=== PATIENT | male | born 1960 | race American Indian/Alaskan Native ===

== ENCOUNTER 2020-01-28 12:33 | Emergency (ER) | payer SELFPAY ==
--- NOTE | 2020-01-28 14:44 | Event Note ---
ED Screening Note Date of service: 01/28/20 Time: 14:41 ED Screening Note: This initial assessment/diagnostic orders/clinical plan/treatment(s) is/are subject to change based on patients health status, clinical progression and re- assessment by fellow clinical providers in the ED. Further treatment and workup at subsequent clinical providers discretion. Patient/guardian urged not to elope from the ED as their condition may be serious if not clinically assessed and managed. Initial orders include: 59yo M states that he has flu-like symptoms, SOB, dry cough and fatigue x 4 days.
--- NOTE | 2020-01-28 15:07 | XRay Report ---
CHEST 2 VIEWS INDICATION: Shortness of breath. COMPARISON: None FINDINGS: Support devices: None. Heart: Within normal limits. Lungs/pleura: No acute air space or interstitial disease. No pneumothorax. Additional findings: None. IMPRESSION: No acute findings. Signer Name: Clovis Singh Jr, MD Signed: 01/28/2020 3:03 PM Workstation Name: [id number]
[2020-01-28 16:27] LABS: Hematocrit 47.6 % (35.5-45.6); Hemoglobin 15.6 gm/dl (11.8-15.2); Mean Corpuscular HGB Conc 33 % (32-34); Mean Corpuscular Volume 84 fl (84-94); Platelet Count 164 K/mm3 (140-440); Red Blood Count 5.64 M/mm3 (3.65-5.03); Red Cell Distribution Width 14.4 % (13.2-15.2)
[2020-01-28 17:04] LABS: Basophils % (Manual) 0 % (0.0-1.8); RBC Morphology Normal; Total Cells Counted 100
--- NOTE | 2020-01-28 19:43 | Emergency Department Report ---
ED General Adult HPI - General Chief complaint: Headache Stated complaint: BODY PAIN/COUGHING/HEADACHE Time Seen by Provider: 01/28/20 14:41 Source: patient Mode of arrival: Ambulatory Limitations: No Limitations - History of Present Illness Initial comments: Patient is a 59-year-old male presents emergency room with complaints of a "crick in his neck" that began this morning. He states that he believes he slept wrong and does not have the correct pillow. He states that it is causing tension causing a headache. He states that he is also had a dry cough and states that he had to catch his breath after frequent coughing. He denies any fever, nausea, vomiting, diarrhea, shortness of breath, vision changes, numbness, weakness. He denies any headache currently. He has a past medical history of diabetes and hypertension. He denies any allergies to medications. - Related Data Previous Rx's Medication Instructions Recorded Last Taken Type Naproxen [EC-Naprosyn] 500 mg PO BID PRN #14 tablet. 01/28/20 Unknown Rx methOCARBAMOL [Robaxin TAB] 500 mg PO QHS PRN #12 tablet 01/28/20 Unknown Rx Allergies Allergy/AdvReac Type Severity Reaction Status Date / Time No Known Allergies Allergy Unverified 01/28/20 13:23 ED Review of Systems ROS: Stated complaint: BODY PAIN/COUGHING/HEADACHE Other details as noted in HPI Comment: All other systems reviewed and negative ED Past Medical Hx - Past Medical History Previous Medical History?: Yes Hx Congestive Heart Failure: Yes Hx Diabetes: Yes - Surgical History Past Surgical History?: No - Medications Home Medications: Home Medications Medication Instructions Recorded Confirmed Last Taken Type Naproxen [EC-Naprosyn] 500 mg PO BID PRN #14 tablet. 01/28/20 Unknown Rx methOCARBAMOL [Robaxin TAB] 500 mg PO QHS PRN #12 tablet 01/28/20 Unknown Rx ED Physical Exam - General Limitations: No Limitations General appearance: alert, in no apparent distress - Head Head exam: Present: atraumatic, normocephalic - Eye Eye exam: Present: normal appearance, PERRL, EOMI Pupils: Present: normal accommodation - ENT ENT exam: Present: mucous membranes moist - Neck Neck exam: Present: normal inspection, tenderness (bilateral C-spine paraspinal muscular TTP, no midline C-spine ttp, no step offs, no deformities). Absent: meningismus, full ROM - Respiratory Respiratory exam: Present: normal lung sounds bilaterally. Absent: respiratory distress, wheezes, rales, rhonchi, stridor, chest wall tenderness, accessory muscle use, decreased breath sounds, prolonged expiratory - Cardiovascular Cardiovascular Exam: Present: regular rate, normal rhythm, normal heart sounds. Absent: systolic murmur, diastolic murmur, rubs, gallop - Neurological Exam Neurological exam: Present: alert, oriented X3, CN II-XII intact, normal gait. Absent: motor sensory deficit - Psychiatric Psychiatric exam: Present: normal affect, normal mood - Skin Skin exam: Present: warm, dry, intact ED Course Vital Signs 01/28/20 01/28/20 13:22 19:51 Temperature 98.6 F 98.6 F Pulse Rate 59 L 62 Respiratory 18 16 Rate Blood Pressure 129/82 Blood Pressure 120/76 [Left] O2 Sat by Pulse 100 100 Oximetry ED Medical Decision Making - Lab Data Result diagrams: 01/28/20 15:57 Lab Results 01/28/20 Range/Units 15:57 WBC 8.3 (4.5-11.0) K/mm3 RBC 5.64 H (3.65-5.03) M/mm3 Hgb 15.6 H (11.8-15.2) gm/dl Hct 47.6 H (35.5-45.6) % MCV 84 (84-94) fl MCH 28 (28-32) pg MCHC 33 (32-34) % RDW 14.4 (13.2-15.2) % Plt Count 164 (140-440) K/mm3 Lymph % (Auto) Negative Retoucher Lymph # Negative Retoucher Add Manual Diff Complete Total Counted 100 Seg Neutrophils % Negative Retoucher Seg Neuts % (Manual) 25.0 L (40.0-70.0) % Band Neutrophils % 0 % Lymphocytes % (Manual) 62.0 H (13.4-35.0) % Reactive Lymphs % (Man) 0 % Monocytes % (Manual) 12.0 H (0.0-7.3) % Eosinophils % (Manual) 1.0 (0.0-4.3) % Basophils % (Manual) 0 (0.0-1.8) % Metamyelocytes % 0 % Myelocytes % 0 % Promyelocytes % 0 % Blast Cells % 0 % Nucleated RBC % Not Reportable Seg Neutrophils # Man 2.1 (1.8-7.7) K/mm3 Band Neutrophils # 0.0 K/mm3 Lymphocytes # (Manual) 5.1 (1.2-5.4) K/mm3 Abs React Lymphs (Man) 0.0 K/mm3 Monocytes # (Manual) 1.0 H (0.0-0.8) K/mm3 Eosinophils # (Manual) 0.1 (0.0-0.4) K/mm3 Basophils # (Manual) 0.0 (0.0-0.1) K/mm3 Metamyelocytes # 0.0 K/mm3 Myelocytes # 0.0 K/mm3 Promyelocytes # 0.0 K/mm3 Blast Cells # 0.0 K/mm3 WBC Morphology Not Reportable Hypersegmented Neuts Not Reportable Hyposegmented Neuts Not Reportable Hypogranular Neuts Not Reportable Smudge Cells Not Reportable Toxic Granulation Not Reportable Toxic Vacuolation Not Reportable Dohle Bodies Not Reportable Pelger-Huet Anomaly Not Reportable Jayson Rods Not Reportable Platelet Estimate Not Reportable Clumped Platelets Not Reportable Plt Clumps, EDTA Not Reportable Large Platelets Not Reportable Giant Platelets Not Reportable Platelet Satelliting Not Reportable Plt Morphology Comment Not Reportable RBC Morphology Normal Dimorphic RBCs Not Reportable Polychromasia Not Reportable Hypochromasia Not Reportable Poikilocytosis Not Reportable Anisocytosis Not Reportable Microcytosis Not Reportable Macrocytosis Not Reportable Spherocytes Not Reportable Pappenheimer Bodies Not Reportable Sickle Cells Not Reportable Target Cells Not Reportable Tear Drop Cells Not Reportable Ovalocytes Not Reportable Helmet Cells Not Reportable Membreno-Cardwell Bodies Not Reportable Kenvir Rings Not Reportable Den Cells Not Reportable Bite Cells Not Reportable Crenated Cell Not Reportable Elliptocytes Not Reportable Acanthocytes (Spur) Not Reportable Rouleaux Not Reportable Hemoglobin C Crystals Not Reportable Schistocytes Not Reportable Malaria parasites Not Reportable Ozzie Bodies Not Reportable Hem Pathologist Commnt No - Radiology Data Radiology results: report reviewed CHEST 2 VIEWS INDICATION: Shortness of breath. COMPARISON: None FINDINGS: Support devices: None. Heart: Within normal limits. Lungs/pleura: No acute air space or interstitial disease. No pneumothorax. Additional findings: None. IMPRESSION: No acute findings. Signer Name: Clovis Singh Jr, MD Signed: 01/28/2020 3:03 PM Workstation Name: [id number] Transcribed By: MCKENNA Dictated By: CLOVIS SINGH JR, MD Electronically Authenticated By: CLOVIS SINGH JR, MD Signed Date/Time: 01/28/20 150 DD/ 1502 TD/TT: - Medical Decision Making Patient is a 59-year-old male presents emergency room with complaints of a "crick in his neck" that began this morning. He states that he believes he slept wrong and does not have the correct pillow. He states that it is causing tension causing a headache. He states that he is also had a dry cough and states that he had to catch his breath after frequent coughing. He denies any fever, nausea, vomiting, diarrhea, shortness of breath, vision changes, numbness, weakness. He denies any headache currently. He has a past medical history of diabetes and hypertension. He denies any allergies to medications. Vitals are normal. On exam: bilateral C-spine paraspinal muscular TTP, no m idline C-spine ttp, no step offs, no deformities, no meningeal signs, no focal neuro deficits, breath sounds are clear bilaterally, no wheezing, no rales, no rhonchi. Labs are stable. No leukocytosis, no lymphocytopenia. CXR: No acute findings. Examination consistent with muscle strain which could lead to a tension headache. Patient given prescription for Robaxin and naproxen. advised pt Please take medication as prescribed as needed. Do not drive or operate heavy machinery while taking muscle relaxer due to potential for drowsiness. May use ice pack, heating pad, rest, Epson salt bath. May take Zyrtec [id number] to help relieve dry cough. Follow-up with a primary care doctor in the next 2 to 3 days for reexamination. Return to the emergency room immediately for any new or worsening symptoms including but not limited to high fevers, difficulty breathing, shortness of breath, dizziness, numbness, unilateral weakness, vision changes, etc. - Differential Diagnosis Muscle strain, spasm, DDD, bulging disc, URI, seasonal allergies, PNA Critical care attestation.: If time is entered above; I have spent that time in minutes in the direct care of this critically ill patient, excluding procedure time. ED Disposition Clinical Impression: Tension headache, Dry cough Cervical muscle strain Qualifiers: Encounter type: initial encounter Qualified Code(s): S16.1XXA - Strain of muscle, fascia and tendon at neck level, initial encounter Disposition: TO HOME OR SELFCARE Is pt being admited?: No Does the pt Need Aspirin: No Condition: Stable Instructions: Muscle Strain (ED) Additional Instructions: Please take medication as prescribed as needed. Do not drive or operate heavy machinery while taking muscle relaxer due to potential for drowsiness. May use ice pack, heating pad, rest, Epson salt bath. May take Zyrtec [id number] to help relieve dry cough. Follow-up with a primary care doctor in the next 2 to 3 days for reexamination. Return to the emergency room immediately for any new or worsening symptoms including but not limited to high fevers, difficulty breathing, shortness of breath, dizziness, numbness, unilateral weakness, vision changes, etc. Prescriptions: methOCARBAMOL [Robaxin TAB] 500 mg PO QHS PRN #12 tablet PRN Reason: Muscle Spasm Naproxen [EC-Naprosyn] 500 mg PO BID PRN #14 tablet.dr BENITEZ Reason: pain Referrals: ARNOLDO ALVAREZ MD [Staff Physician] - 2-3 Days [facility] [Provider Group] - 2-3 Days [facility] [Outside] - 2-3 Days [facility] [Outside] - 2-3 Days Time of Disposition: 19:41 Print Language: PORTUGUESE
[2020-01-28 19:54] VITALS: BP 120/76
== END 2020-01-28 19:55 | disposition home or self-care (01) ==
LOC: ED 12:33
DX: S16.1XXA Strain of muscle, fascia and tendon at neck level, initial encounter (principal); R51 Headache; R05 Cough; I50.9 Heart failure, unspecified; E11.9 Type 2 diabetes mellitus without complications; Z79.899 Other long term (current) drug therapy; X58.XXXA Exposure to other specified factors, initial encounter; Y93.89 Activity, other specified; Y92.89 Other specified places as the place of occurrence of the external cause; Y99.8 Other external cause status
CPT/HCPCS: 36415; 71046; 85007; 85025

== ENCOUNTER 2021-03-10 05:18 | Emergency (ER) | payer SELFPAY ==
[2021-03-10 06:16] LABS: Basophils % (Auto) 0.3 % (0.0-1.8); Eosinophils # (Auto) 0.1 K/mm3 (0.0-0.4); Eosinophils % (Auto) 1.6 % (0.0-4.3); Hematocrit 45.9 % (35.5-45.6); Lymphocytes # (Auto) 2.9 K/mm3 (1.2-5.4); Mean Corpuscular HGB Conc 35 % (32-34); Mean Corpuscular Volume 82 fl (84-94); Monocytes # (Auto) 0.7 K/mm3 (0.0-0.8); Monocytes % (Auto) 10.2 % (0.0-7.3); Platelet Count 142 K/mm3 (140-440); Red Cell Distribution Width 13.5 % (13.2-15.2)
--- NOTE | 2021-03-10 06:21 | XRay Report ---
CHEST 1 VIEW 03/10/2021 5:44 AM INDICATION / CLINICAL INFORMATION: Chest Pain. COMPARISON: 01/28/2020 FINDINGS: SUPPORT DEVICES: None. HEART / MEDIASTINUM: No significant abnormality. LUNGS / PLEURA: No significant pulmonary or pleural abnormality. No pneumothorax. ADDITIONAL FINDINGS: No significant additional findings. IMPRESSION: No acute abnormality. Signer Name: Americo Johnson MD Signed: 03/10/2021 6:16 AM Workstation Name: [id number]
--- NOTE | 2021-03-10 06:25 | Emergency Department Report ---
ED Chest Pain HPI - General Chief Complaint: Chest Pain Stated Complaint: CHEST PAIN Time Seen by Provider: 03/10/21 06:14 Source: patient, EMS Mode of arrival: Ambulatory Limitations: No Limitations - History of Present Illness Initial Comments: 59-year-old male, history of hypertension, diabetes, glaucoma, presents to ED with body cramping. Patient states he was awakened from sleep with cramping in his legs which then moved to cramping in his abdomen which then moved to cramping in his chest. Patient states the cramping feels "like when you are dehydrated." Patient reports some diaphoresis. He denies any shortness of breath, nausea, vomiting, leg swelling. Patient reports onset of the cramping approximately 1 hour ago. He states he is still having cramping in his legs, abdomen, and chest, but now it is "mild." Complaint: chest pain -: hour(s) (1) Onset: awoke with symptoms Pain Location: other (Anterior chest) Pain Radiation: none Severity: moderate Quality: other (Crampy) Consistency: other (Now improved) Improves With: nothing Worsens With: nothing re: denies: nausea, vomting Other Symptoms: denies: cough, fever, syncope, leg swelling - Related Data Previous Rx's Medication Instructions Recorded Last Taken Type Naproxen [EC-Naprosyn] 500 mg PO BID PRN #14 tablet. 01/28/20 Unknown Rx methOCARBAMOL [Robaxin TAB] 500 mg PO QHS PRN #12 tablet 01/28/20 Unknown Rx Naproxen [Naprosyn] 500 mg PO BID #20 tablet 03/10/21 Unknown Rx Allergies Allergy/AdvReac Type Severity Reaction Status Date / Time No Known Allergies Allergy Unverified 01/28/20 13:23 Heart Score - HEART Score History: Slightly suspicious EKG: Non-specific Age: 45-65 Risk factors: 1-2 risk factors Troponin: < normal limit HEART Score: 3 - EKG Read Time Time EKG Completed: 05:58 EKG Read Time: 06:06 ED Review of Systems ROS: Stated complaint: CHEST PAIN Other details as noted in HPI Comment: All other systems reviewed and negative Constitutional: denies: chills, fever Respiratory: denies: shortness of breath Cardiovascular: chest pain Gastrointestinal: abdominal pain. denies: nausea, vomiting, diarrhea Musculoskeletal: myalgia ED Past Medical Hx - Past Medical History Hx Congestive Heart Failure: Yes Hx Diabetes: Yes - Social History Smoking Status: Current Every Day Smoker - Medications Home Medications: Home Medications Medication Instructions Recorded Confirmed Last Taken Type Naproxen [EC-Naprosyn] 500 mg PO BID PRN #14 tablet. 01/28/20 Unknown Rx methOCARBAMOL [Robaxin TAB] 500 mg PO QHS PRN #12 tablet 01/28/20 Unknown Rx Naproxen [Naprosyn] 500 mg PO BID #20 tablet 03/10/21 Unknown Rx ED Physical Exam - General Limitations: No Limitations General appearance: alert, in no apparent distress - Head Head exam: Present: atraumatic, normocephalic - Eye Eye exam: Present: normal appearance, EOMI - ENT ENT exam: Present: mucous membranes moist - Neck Neck exam: Present: normal inspection - Respiratory Respiratory exam: Present: normal lung sounds bilaterally. Absent: respiratory distress - Cardiovascular Cardiovascular Exam: Present: regular rate, normal rhythm - GI/Abdominal GI/Abdominal exam: Present: soft. Absent: distended, tenderness - Extremities Exam Extremities exam: Present: normal inspection. Absent: pedal edema, calf tenderness - Neurological Exam Neurological exam: Present: alert, oriented X3 - Psychiatric Psychiatric exam: Present: normal affect, normal mood - Skin Skin exam: Present: warm, dry, intact, normal color ED Course Vital Signs 03/10/21 03/10/21 03/10/21 05:32 06:31 07:01 Temperature 98.4 F Pulse Rate 62 63 Respiratory 17 17 Rate Blood Pressure 116/79 129/79 O2 Sat by Pulse 96 98 Oximetry 03/10/21 03/10/21 03/10/21 07:04 07:15 08:01 Temperature Pulse Rate 61 62 Respiratory 18 17 19 Rate Blood Pressure 116/79 133/79 O2 Sat by Pulse 99 100 Oximetry 03/10/21 03/10/21 03/10/21 08:15 08:45 09:01 Temperature Pulse Rate 57 L 64 66 Respiratory 19 17 18 Rate Blood Pressure 136/89 135/73 132/82 O2 Sat by Pulse 95 99 98 Oximetry ED Medical Decision Making - Lab Data Result diagrams: 03/10/21 05:47 03/10/21 05:47 - EKG Data -: EKG Interpreted by [place] EKG shows normal: sinus rhythm, axis, intervals, QRS complexes - EKG Data Interpretation: LVH, other (Inferior T wave inversions) - Radiology Data Radiology results: report reviewed, image reviewed - Medical Decision Making 59-year-old male presents to ED with diffuse body cramping, including legs, abdomen, chest. EKG shows no ST elevation. Troponin negative x2. CK is normal. Chest x-ray is unremarkable. Blood glucose slightly elevated in the 330s, however patient does not appear to be in DKA. 1 L bolus of IV fluids and Toradol was given. Patient feeling much better following medication administration. He will be discharged at this time. Outpatient follow-up advised, return precautions given. - Differential Diagnosis ACS, rhabdomyolysis, dehydration Critical care attestation.: If time is entered above; I have spent that time in minutes in the direct care of this critically ill patient, excluding procedure time. ED Disposition Clinical Impression: Chest pain, Myalgia Disposition: DC- TO HOME OR SELFCARE Is pt being admited?: No Condition: Stable Instructions: Nonspecific Chest Pain, Adult, Musculoskeletal Pain Prescriptions: Naproxen [Naprosyn] 500 mg PO BID #20 tablet Referrals: PRIMARY CARE [Primary Care Provider] - 3-5 Days [facility] [Provider Group] - 3-5 Days Time of Disposition: 09:24
[2021-03-10 06:36] LABS: Alanine Aminotransferase 21 units/L (7-56); Albumin 4.1 g/dL (3.9-5); BUN/Creatinine Ratio 18; Blood Urea Nitrogen 20 mg/dL (9-20); Hemolysis Index 6
[2021-03-10] MEDS ORDERED: SODIUM CHLORIDE 0.9% 1000 ML 1,000 ML IV ONE (06:49)
[2021-03-10] MEDS ORDERED: KETOROLAC 30 MG/1 ML INJ IV ONE (06:51)
[2021-03-10 10:07] VITALS: BP 132/82
--- NOTE | 2021-03-12 11:45 | Electrocardiograph Report ---
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
== END 2021-03-10 10:35 | disposition home or self-care (01) ==
LOC: EDBD → ED 05:18
DX: R07.89 Other chest pain (principal); M79.10 Myalgia, unspecified site; I10 Essential (primary) hypertension; F17.200 Nicotine dependence, unspecified, uncomplicated; Z79.899 Other long term (current) drug therapy
CPT/HCPCS: 36415; 71045; 80053; 82550; 82962; 84484; 85025; 93005; 96361; 96374; 99284; J1885; J7030

== ENCOUNTER 2021-04-04 11:18 | Emergency (ER) | payer SELFPAY ==
--- NOTE | 2021-04-04 12:56 | Event Note ---
ED Screening Note Date of service: 04/04/21 Time: 12:52 ED Screening Note: 59-year-old male patient with history of diabetes and hypertension presents to the emergency department with complaints of subjective fever, chills, epigastric abdominal pain, nausea, and diarrhea starting this morning. Patient reports 3 episodes of diarrhea, no black or bloody stools. No known sick contacts. No [id number] medications prior to arrival. No current steroid or antibiotic use. No recent travel. General: Awake, appropriately interactive, no acute distress. Neck: Supple. Full range of motion intact. Cardiovascular: Normal peripheral perfusion. Pulmonary: No respiratory distress. Patient is speaking normally without use of accessory muscles. Skin: No apparent rashes or lesions. Neurological: No facial asymmetry. Speech is clear. Follows commands. Patient is alert and oriented. Musculoskeletal: Moves all four extremities spontaneously with normal range of motion. Psych: Cooperative. Appropriate mood and affect. I have greeted and performed a focused rapid initial assessment of this patient. A comprehensive ED assessment and evaluation of the patient, analysis of all test results, and completion of the medical decision-making process will be conducted by additional ED providers. This initial assessment/diagnostic orders/clinical plan/treatment(s) is/are subject to change based on patients health status, clinical progression and re-assessment. Further treatment and workup at subsequent clinical provider's discretion. Patient/guardian urged not to elope from the ED as their condition may be serious if not clinically assessed and managed.
--- NOTE | 2021-04-04 13:27 | XRay Report ---
CHEST 2 VIEWS INDICATION / CLINICAL INFORMATION: epigastric pain. COMPARISON: 03/10/2021 FINDINGS: SUPPORT DEVICES: None. HEART / MEDIASTINUM: Stable. LUNGS / PLEURA: No significant pulmonary or pleural abnormality. No pneumothorax. ADDITIONAL FINDINGS: No significant additional findings. IMPRESSION: 1. No acute findings. No significant interval change. Signer Name: Cali Cade MD Signed: 04/04/2021 1:22 PM Workstation Name: [id number]
[2021-04-04 13:45] LABS: Basophils % (Auto) 0.4 % (0.0-1.8); Eosinophils % (Auto) 0.2 % (0.0-4.3); Hematocrit 50.1 % (35.5-45.6); Hemoglobin 16.8 gm/dl (11.8-15.2); Lymphocytes # (Auto) 3.9 K/mm3 (1.2-5.4); Lymphocytes % (Auto) 49.2 % (13.4-35.0); Mean Corpuscular HGB Conc 34 % (32-34); Mean Corpuscular Volume 84 fl (84-94); Monocytes # (Auto) 0.7 K/mm3 (0.0-0.8); Monocytes % (Auto) 9.2 % (0.0-7.3); Platelet Count 163 K/mm3 (140-440); Red Blood Count 5.98 M/mm3 (3.65-5.03); Red Cell Distribution Width 14.4 % (13.2-15.2)
[2021-04-04 14:05] LABS: Alanine Aminotransferase 15 units/L (7-56); Albumin 4.8 g/dL (3.9-5); BUN/Creatinine Ratio 11; Blood Urea Nitrogen 11 mg/dL (9-20); Calcium 9.7 mg/dL (8.4-10.2); Hemolysis Index 14
--- NOTE | 2021-04-04 16:38 | Emergency Department Report ---
ED N/V/D HPI - General Chief complaint: Weakness Stated complaint: FEVER, CHILLS, SWEAT, CANNOT EAT ANYTHING Source: patient Mode of arrival: Ambulatory Limitations: No Limitations - History of Present Illness Initial comments: 59-year-old -Tog[place] male diabetic presents emerged department complaining of a 1 day history of nausea vomiting and diarrhea with fatigue since the onset which was spontaneous. Reports no known sick contacts reports no hemoptysis no hematemesis hematochezia no chest pain palpitations. No headaches. MD complaint: nausea, vomiting, diarrhea -: Gradual Location: diffuse Radiation: none Quality: aching Consistency: constant Improves with: none Worsens with: eating Associated Symptoms: myalgias, fever/chills, loss of appetite, malaise, nausea/vomiting, weakness. denies: cough, rash, dysuria, syncope - Related Data Previous Rx's Medication Instructions Recorded Last Taken Type Naproxen [EC-Naprosyn] 500 mg PO BID PRN #14 tablet. 01/28/20 Unknown Rx methOCARBAMOL [Robaxin TAB] 500 mg PO QHS PRN #12 tablet 01/28/20 Unknown Rx Naproxen [Naprosyn] 500 mg PO BID #20 tablet 03/10/21 Unknown Rx Hyoscyamine Subl [Levsin Sl 0.125 0.125 mg SL Q6HR PRN #20 tab 04/04/21 Unknown Rx TAB] Ondansetron [Zofran ODT TAB] 8 mg PO Q12HR #14 tab.rapdis 04/04/21 Unknown Rx Allergies Allergy/AdvReac Type Severity Reaction Status Date / Time No Known Allergies Allergy Unverified 01/28/20 13:23 ED Review of Systems ROS: Stated complaint: FEVER, CHILLS, SWEAT, CANNOT EAT ANYTHING Other details as noted in HPI Comment: All other systems reviewed and negative ED Past Medical Hx - Past Medical History Previous Medical History?: Yes Hx Congestive Heart Failure: Yes Hx Diabetes: Yes - Surgical History Past Surgical History?: No - Social History Smoking Status: Current Every Day Smoker Substance Use Type: Marijuana - Medications Home Medications: Home Medications Medication Instructions Recorded Confirmed Last Taken Type Naproxen [EC-Naprosyn] 500 mg PO BID PRN #14 tablet. 01/28/20 Unknown Rx methOCARBAMOL [Robaxin TAB] 500 mg PO QHS PRN #12 tablet 01/28/20 Unknown Rx Naproxen [Naprosyn] 500 mg PO BID #20 tablet 03/10/21 Unknown Rx Hyoscyamine Subl [Levsin Sl 0.125 0.125 mg SL Q6HR PRN #20 tab 04/04/21 Unknown Rx TAB] Ondansetron [Zofran ODT TAB] 8 mg PO Q12HR #14 tab.rapdis 04/04/21 Unknown Rx ED Physical Exam - General Limitations: No Limitations General appearance: alert, in no apparent distress - Head Head exam: Present: atraumatic, normocephalic - Eye Eye exam: Present: normal appearance, PERRL - ENT ENT exam: Present: mucous membranes moist - Neck Neck exam: Present: normal inspection - Respiratory Respiratory exam: Present: normal lung sounds bilaterally. Absent: respiratory distress - Cardiovascular Cardiovascular Exam: Present: regular rate, normal rhythm. Absent: systolic murmur, diastolic murmur, rubs, gallop - GI/Abdominal GI/Abdominal exam: Present: soft, normal bowel sounds. Absent: distended, tenderness, guarding - Rectal Rectal exam: Present: deferred - Extremities Exam Extremities exam: Present: normal inspection, normal capillary refill - Back Exam Back exam: Present: normal inspection - Neurological Exam Neurological exam: Present: alert, oriented X3 - Psychiatric Psychiatric exam: Present: normal affect, normal mood - Skin Skin exam: Present: warm, dry, intact, normal color. Absent: rash ED Course Vital Signs 04/04/21 12:10 Temperature 98.4 F Pulse Rate 79 Respiratory 20 Rate Blood Pressure 120/90 O2 Sat by Pulse 97 Oximetry ED Medical Decision Making - Lab Data Result diagrams: 04/04/21 13:28 04/04/21 13:28 Lab Results 04/04/21 04/04/21 Range/Units 13:28 13:28 WBC 8.0 (4.5-11.0) K/mm3 RBC 5.98 H (3.65-5.03) M/mm3 Hgb 16.8 H (11.8-15.2) gm/dl Hct 50.1 H (35.5-45.6) % MCV 84 (84-94) fl MCH 28 (28-32) pg MCHC 34 (32-34) % RDW 14.4 (13.2-15.2) % Plt Count 163 (140-440) K/mm3 Lymph % (Auto) 49.2 H (13.4-35.0) % Cloud % (Auto) 9.2 H (0.0-7.3) % Eos % (Auto) 0.2 (0.0-4.3) % Baso % (Auto) 0.4 (0.0-1.8) % Lymph # (Auto) 3.9 (1.2-5.4) K/mm3 Cloud # (Auto) 0.7 (0.0-0.8) K/mm3 Eos # (Auto) 0.0 (0.0-0.4) K/mm3 Baso # (Auto) 0.0 (0.0-0.1) K/mm3 Seg Neutrophils % 41.0 (40.0-70.0) % Seg Neutrophils # 3.3 (1.8-7.7) K/mm3 Sodium 130 L (137-145) mmol/L Potassium 3.7 (3.6-5.0) mmol/L Chloride 90.0 L (98-107) mmol/L Carbon Dioxide 28 (22-30) mmol/L Anion Gap 16 mmol/L BUN 11 (9-20) mg/dL Creatinine 1.0 (0.8-1.3) mg/dL Estimated GFR > 60 ml/min BUN/Creatinine Ratio 11 % Glucose 369 H (75-100) mg/dL Calcium 9.7 (8.4-10.2) mg/dL Magnesium 2.00 (1.7-2.3) mg/dL Total Bilirubin 1.20 (0.1-1.2) mg/dL AST 20 (5-40) units/L ALT 15 (7-56) units/L Alkaline Phosphatase 111 (35-129) units/L Troponin T < 0.010 (0.00-0.029) ng/mL Total Protein 7.9 (6.3-8.2) g/dL Albumin 4.8 (3.9-5) g/dL Albumin/Globulin Ratio 1.5 % Lipase 9 L (13-60) units/L - Radiology Data Radiology results: report reviewed [address] [place] [address] XRay Report Signed Patient: EMETERIO LUTZ MR#: [id number] 6 : 06/05/1961 Acct:[id number] Age/Sex: 59 / M ADM Date: 04/04/21 Loc: ED Attending Dr: Ordering Physician: DENY FLYNN Date of Service: 04/04/21 Procedure(s): XR chest routine 2V Accession Number(s): [id number] cc: DENY FLYNN Fluoro Time In Minutes: CHEST 2 VIEWS INDICATION / CLINICAL INFORMATION: epigastric pain. COMPARISON: 03/10/2021 FINDINGS: SUPPORT DEVICES: None. HEART / MEDIASTINUM: Stable. LUNGS / PLEURA: No significant pulmonary or pleural abnormality. No pneumothorax. ADDITIONAL FINDINGS: No significant additional findings. IMPRESSION: 1. No acute findings. No significant interval change. Signer Name: Cali Newman MD Signed: 04/04/2021 1:22 PM Workstation Name: [id number] Transcribed By: Dictated By: CALI NEWMAN Electronically Authenticated By: CALI NEWMAN Signed Date/Time: 04/04/21 132 DD/ 21 TD/TT: Print Cancel - Medical Decision Making Patient presents to the emergency department with nausea, vomiting, diarrhea, differential diagnosis includes possible acute gastroenteritis. Abdominal examination without peritoneal signs. Currently patient is euvolemic without ev idence of dehydration. No evidence of surgical abdomen or other acute medical emergency including bowel obstruction, viscus perforation, vascular catastrophe, appendicitis, cholecystitis at this time. Presentation not consistent with other acute emergent causes of vomiting and diarrhea at this time. No indication for abdominal imaging. Found to have some hypoglycemia with blood sugar being 36 9. After evaluation blood sugar did spontaneously resolve to the 250 range . Advised Mr. Lutz the importance of good glucose control. Advised on proper hydration and multivitamin utilization. Does report the importance of following with primary care provider reevaluation of the diabetic medications Plan supportive care, oral/IV rehydration, antiemetics and reassess Critical care attestation.: If time is entered above; I have spent that time in minutes in the direct care of this critically ill patient, excluding procedure time. ED Disposition Clinical Impression: Nausea vomiting and diarrhea Disposition: DC-01 TO HOME OR SELFCARE Is pt being admited?: No Does the pt Need Aspirin: No Condition: Stable Instructions: Diarrhea, Adult, [id number], Nausea and Vomiting, Adult, Food Choices to Help Relieve Diarrhea, Adult Prescriptions: Hyoscyamine Subl [Levsin Sl 0.125 TAB] 0.125 mg SL Q6HR PRN #20 tab PRN Reason: abdominal pian Ondansetron [Zofran ODT TAB] 8 mg PO Q12HR #14 tab.ochoa Referrals: PRIMARY CARE, [Primary Care Provider] - 3-5 Days [facility] [Provider Group] - 3-5 Days
[2021-04-04 17:35] VITALS: BP 136/97
== END 2021-04-04 17:38 | disposition home or self-care (01) ==
LOC: ED 11:18
DX: R11.2 Nausea with vomiting, unspecified (principal); R19.7 Diarrhea, unspecified; R53.83 Other fatigue; F17.200 Nicotine dependence, unspecified, uncomplicated; F12.90 Cannabis use, unspecified, uncomplicated; E11.9 Type 2 diabetes mellitus without complications; I50.9 Heart failure, unspecified; Z72.89 Other problems related to lifestyle; Z79.899 Other long term (current) drug therapy
CPT/HCPCS: 36415; 71046; 80053; 82962; 83690; 83735; 84484; 85025; 99283

== ENCOUNTER 2021-10-23 09:57 | Emergency (ER) | payer SELFPAY ==
[2021-10-23] MEDS ORDERED: ACETAMINOPHEN 325 MG TAB PO ONE (12:40)
[2021-10-23] MEDS ORDERED: IBUPROFEN 400 MG TAB PO ONE (12:40)
--- NOTE | 2021-10-23 12:41 | Emergency Department Report ---
Upper Extremity - HPI Chief Complaint: Extremity Injury, Upper Stated Complaint: SHOULDER PAIN Time Seen by Provider: 10/23/21 12:28 Upper Extremity: Left Shoulder Occurred When: 1 Day Mechanism: Other Severity: moderate Symptoms: Yes Pain with Movement, No Deformity, No Limited Range of Movement, No Numbness, No Weakness, No Swelling, No Bruising/Ecchymosis, No Laceration or Abrasion Other History: The patient was evaluated in the emergency department for symptoms described in the history of present illness. He/she was evaluated in the context of the global COVID-19 pandemic, which necessitated consideration that the patient might be at risk for infection with the virus that causes COVID-19. Institutional protocols and algorithms that pertain to the evaluation of patients at risk for COVID-19 are in a state of rapid change based on information released by regulatory bodies including the CDC and federal and state organizations. These policies and algorithms were followed during the patient's care in the emergency department. Please note that these policies, procedures and recommendations changed on a rapid basis. The patient is a 60-year-old gentleman, who presents to the ER today with a complaint of nontraumatic left-sided shoulder pain, which happened at work yesterday, after lifting a heavy object. Prior to this event, the patient reports that he is in his usual state of health. Patient indicates the pain is throbbing and aching, increases with palpation and range of motion, and it decreases with rest. 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 He was referred to the emergency room for medical clearance. He denies additional injuries and complaints ED Review of Systems ROS: Stated complaint: SHOULDER PAIN Other details as noted in HPI Constitutional: denies: fever Respiratory: denies: cough Cardiovascular: denies: chest pain Gastrointestinal: denies: abdominal pain Musculoskeletal: arthralgia, myalgia ED Past Medical Hx - Past Medical History Hx Congestive Heart Failure: Yes Hx Diabetes: Yes - Social History Smoking Status: Current Every Day Smoker Substance Use Type: Marijuana - Medications Home Medications: Home Medications Medication Instructions Recorded Confirmed Last Taken Type Acetaminophen [Non-Aspirin Extra 650 mg PO Q6HR PRN #30 tablet 10/23/21 Unknown Rx Strength] Ibuprofen [Motrin] 600 mg PO Q8H PRN #30 tablet 10/23/21 Unknown Rx Upper Extremity Exam - Exam General: Vital signs noted. No distress. Alert and acting appropriately. Sensation is intact to light touch in the bilateral deltoid, median, radial, and ulnar distribution. 2+ pulses noted in the bilateral upper extremities. There is no long bony tenderness. Left shoulder has intact range of motion, but is painful to active and painfully range. There is no redness, warmth, pus or streaking over the left shoulder. No facial droop. Tongue midline. Extraocular movements intact bilaterally. Facial sensation intact to light touch in V1, V2, V3 distribution bilaterally. 5 and a 5 strength in 4 extremities. Sensation intact to light touch in 4 extremities. Head and Torso: No HEENT Abnormality, No Neck Tenderness, No Chest/Lungs Abnormality, No Abdominal Tenderness, No Back Tenderness Shoulder Exam: Yes Shoulder Tenderness (Left shoulder pain), Yes Normal Range of Motion in Shoulder, Yes AC Joint Tenderness (left), No Clavicle Tenderness, No Shoulder Deformity Arm Exam: No Arm/Humerus Tenderness, No Arm Deformity Elbow: Yes Normal Range of Motion in Elbow, No Elbow Tenderness, No Elbow Deformity Forearm: No Forearm Tenderness, No Forearm Deformity, No Pain with Pronation, No Pain with Supination Wrist: Yes Normal ROM in Wrist, No Wrist Tenderness, No Wrist Deformity, No Snuffbox Tenderness, No Pain with Axial Thumb Compression Hand: Yes Normal ROM in Digit(s), No Hand Tenderness, No Hand Deformity, No Digit Tenderness, No Digit(s) Deformity, No Tendon Dysfunction CMS Exam: Yes Normal Distal Pulses, Yes Normal Capillary Refill, Yes Normal Distal Sensation, No Broken Skin ED Course Vital Signs 10/23/21 10/23/21 10/23/21 10:27 10:32 12:27 Temperature 98.1 F Pulse Rate 88 Respiratory 20 Rate Blood Pressure 140/91 O2 Sat by Pulse 100 99 Oximetry ED Medical Decision Making - Lab Data Vital Signs 10/23/21 10/23/21 10/23/21 10:27 10:32 12:27 Temperature 98.1 F Pulse Rate 88 Respiratory 20 Rate Blood Pressure 140/91 O2 Sat by Pulse 100 99 Oximetry - Radiology Data Radiology results: pending, report reviewed, image reviewed Bilateral shoulder radiographs, 3 views of each shoulder provided. HISTORY: Shoulder pain COMPARISON: FINDINGS: Right shoulder: No acute fracture or malalignment. There is mild osteoarthritis of the right acromioclavicular joint. Subacromial space is preserved. Soft tissues are unremarkable. Left shoulder: No acute fracture or malalignment. Mild/moderate left acromioclavicular osteoarthritis. Subacromial space is preserved. Soft tissues are unremarkable. IMPRESSION: No acute abnormality of the shoulders. Signer Name: Robbi Meyer MD Signed: 10/23/2021 12:18 PM Workstation Name: [id number] - Medical Decision Making Differential diagnosis, including but not limited to: Sprain, strain, fracture, dislocation, arthritis Assessment and plan: 60-year-old gentleman, who is right-hand dominant, presenting to the ER today with complaints of left shoulder pain after heavy lifting, which is a work-related injury. 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 He has a normal neurovascular examination, intact range of motion of the shoulder, no additional injuries, and his exam and physical are not suggestive of infected/inflamed/septic joint. Tylenol, Motrin, rest, ice, compression, elevation, light duty, no heavy lifting, counseled to follow-up with outpatient primary care, and his employer, to follow-up with the Worker's Compensation provider for clearance to return to heavy lifting. Return precautions are reviewed. Critical care attestation.: If time is entered above; I have spent that time in minutes in the direct care of this critically ill patient, excluding procedure time. ED Disposition Clinical Impression: Osteoarthritis of AC (acromioclavicular) joint Left shoulder pain Qualifiers: Chronicity: acute Qualified Code(s): M25.512 - Pain in left shoulder Disposition: 01 HOME / SELF CARE / HOMELESS Is pt being admited?: No Does the pt Need Aspirin: No Condition: Good Instructions: Shoulder Pain Additional Instructions: Please take the pain medication as needed and directed. Alternate ice packs and heat packs as needed for physical pain. The patient may return to work, but he is not cleared to return to full duty, heavy lifting. Patient may participate in light lifting and light activities, as he is physically able to do. We recommend that the patient follow-up with his finishing room supervisor or employer, to clarify his employers work-related injury, and Worker's Compensation policy. Alternatively, the patient may follow-up with an outpatient primary care doctor or orthopedic physician, such as those at [facility] orthopedic. Please take the pain medications as needed and directed. Please return to the emergency room right away with new pain, worsened pain, migration of pain, projectile vomiting, change in mental status, confusion, inability tolerate liquid feeds, new, worsened or different symptoms not present on the initial emergency room evaluation Prescriptions: Ibuprofen [Motrin] 600 mg PO Q8H PRN #30 tablet PRN Reason: Pain Acetaminophen [Non-Aspirin Extra Strength] 650 mg PO Q6HR PRN #30 tablet PRN Reason: Pain , Severe (7-10) Referrals: [facility] [Provider Group] - 3-5 Days [facility] [Provider Group] - 3-5 Days Forms: Work/School Release Form(ED)
--- NOTE | 2021-10-23 13:22 | XRay Report ---
Bilateral shoulder radiographs, 3 views of each shoulder provided. HISTORY: Shoulder pain COMPARISON: FINDINGS: Right shoulder: No acute fracture or malalignment. There is mild osteoarthritis of the right acromioc lavicular joint. Subacromial space is preserved. Soft tissues are unremarkable. Left shoulder: No acute fracture or malalignment. Mild/moderate left acromioclavicular osteoarthritis . Subacromial space is preserved. Soft tissues are unremarkable. IMPRESSION: No acute abnormality of the shoulders. Signer Name: Robbi Meyer MD Signed: 10/23/2021 1:18 PM Workstation Name: [id number]
[2021-10-23 15:02] VITALS: BP 125/71
== END 2021-10-23 15:04 | disposition home or self-care (01) ==
LOC: ED 09:57
DX: M19.012 Primary osteoarthritis, left shoulder (principal); I50.9 Heart failure, unspecified; E11.9 Type 2 diabetes mellitus without complications; F17.200 Nicotine dependence, unspecified, uncomplicated; F12.90 Cannabis use, unspecified, uncomplicated; X50.0XXA Overexertion from strenuous movement or load, initial encounter; Y93.89 Activity, other specified; Y92.89 Other specified places as the place of occurrence of the external cause; Y99.0 Civilian activity done for income or pay
CPT/HCPCS: 99283